=== PATIENT | female | born 1965 | race Caucasian/White ===

== ENCOUNTER 2021-09-21 13:54 | Emergency (ER) | payer BC ==
[~2021-09-21] VITALS: Ht 162.6 cm; Wt 97.5 kg
[2021-09-21 13:57] VITALS: BP 178/85
--- NOTE | 2021-09-21 13:57 | NUR ---
PT BIBA TO ER BED 9
--- NOTE | 2021-09-21 13:57 | NUR ---
56 Y/O female BIBA for [facility] CP /10 during H/D. Pt states she no longer has any pain at this time. Pt is AOX4, able to make needs known. Resp even and unlabored on RA. Clear upon auscultation. S1S2, SR on monitor (HR99) Surgical sternal incision noted closed by scab, edges well approximated. Right leg noted with nicolas from graft site for CABG. Bilat lower edema +2 with weak pedal pulses. Abd soft and non-tender with + BS noted. Passing flatus. Last BM 09/21/21. Pt able to ambulate well in a steady manner. States she is oliguric at this time. Pt is on H/D, last session was today, 1.9 L removed. A/V shunt noted on her MICHA, + B/T upon auscultation noted at this time. PmHx: CABG x1, CAD, HLD, HTN, ESRD, DM Allergies: PCN
--- NOTE | 2021-09-21 14:35 | NUR ---
Dr Cohen at bedside to asess pt at this time. EKG results handed to ARYAN
[2021-09-21 15:20] LABS: BASOPHILS % (AUTO) 0.1 % (0.0-2.0); EOSINOPHILS # (AUTO) 0.2 K/uL (0-0.4); EOSINOPHILS % (AUTO) 1.6 % (0.0-4.0); HEMATOCRIT 28.8 % (36-48); HEMOGLOBIN 9.3 g/dL (12.0-16.0); LYMPHOCYTES # (AUTO) 0.8 K/uL (2.5-16.5); LYMPHOCYTES % (AUTO) 5.8 % (20.5-51.1); MEAN CORPUSCULAR HEMOGLOBIN 30 pg (27-31); MEAN CORPUSCULAR HGB CONC 32 g/dL (33-37); MEAN CORPUSCULAR VOLUME 92.2 fL (80-94); MONOCYTES # (AUTO) 0.6 K/uL (0.8-1.0); MONOCYTES % (AUTO) 4.5 % (1.7-9.3); NEUTROPHILS # (AUTO) 12.6 K/uL (1.8-7.7); PLATELET COUNT (AUTO) 474 K/uL (140-450); RED BLOOD CELL COUNT(AUTO) 3.13 MIL/uL (4.20-5.40); RED CELL DISTRIBUTION WIDTH 16.2 % (11.6-13.7); WHITE BLOOD COUNT (AUTO) 14.3 K/uL (4.8-10.8)
[2021-09-21] MEDS ORDERED: CLONIDINE HYDROCHLORIDE 0.1 MG TAB PO ONE (15:30)
--- NOTE | 2021-09-21 15:35 | NUR ---
Pt noted with elevated B/P at this time. ARYAN Cohen made aware and new orders noted and carried out.
--- NOTE | 2021-09-21 15:49 | NUR ---
Called lab to draw blood specimens at this time.
--- NOTE | 2021-09-21 16:56 | NUR ---
[facility] HOME HEALTH NURSE ERUM,
[2021-09-21 17:32] LABS: PROTHROMBIN TIME 11.8 secs (10.8-13.4)
[2021-09-21] MEDS ORDERED: LEVOFLOXACIN 750 MG/D5W PREMIX 150 ML IV ONE (17:35)
--- NOTE | 2021-09-21 19:01 | NUR ---
Critical labs for WBC/ PLT shown to ARYAN Cohen
--- NOTE | 2021-09-21 19:22 | NUR ---
Pt report given to XI Tavera. Transfer of care at this time.
--- NOTE | 2021-09-21 19:22 | NUR ---
Received report from Kajal RN, pt here for chest pain post dialysis today. WEaiting for disposition, patient swabbed for covid screening.
--- NOTE | 2021-09-21 19:49 | NUR ---
WANTS TO [phone]
[2021-09-21 20:31] LABS: ANION GAP 14.8 (8-16); CARBON DIOXIDE 34.3 mmol/L (21-32); POTASSIUM 4.1 mmol/L (3.5-5.1); TOTAL BILIRUBIN 0.6 mg/dL (0.0-1.0)
[2021-09-21 20:40] LABS: CREATININE 4.5 mg/dL (0.6-1.3)
[2021-09-21] MEDS ORDERED: NACL 0.9% 500 ML IV ONE (21:35)
--- NOTE | 2021-09-21 22:15 | NUR ---
Patient requesting to sign out AMA, Dr. santamaria informed and called to bedside along with Chinese speaking member service representative, involved. Patient convinced to stay.
[2021-09-21] MEDS ORDERED: LORazepam 2 MG/ML VIAL IVP ONE (22:25)
--- NOTE | 2021-09-21 22:40 | NUR ---
[facility] AT BEDSIDE FOR TRANSPORT
--- NOTE | 2021-09-21 23:13 | NUR ---
report given to receiving RN Marielos. Report given to ambulance staff Arel of [facility] Unit [id number].
[2021-09-22 02:13] VITALS: BP 146/59
== END 2021-09-21 23:13 | disposition short-term general hospital (02) ==
LOC: MED 13:54
DX: A41.89 Other specified sepsis (principal); J18.9 Pneumonia, unspecified organism; N18.6 End stage renal disease; Z99.2 Dependence on renal dialysis; Z20.822 Contact with and (suspected) exposure to COVID-19
CPT/HCPCS: 36415; 71045; 80053; 83605; 83880; 84484; 85025; 85610; 85730; 87040; 87426; 93005; 96365; 96375; 99291; J1956; J2060; Q0092